=== PATIENT | female | born 1935 | race Asian ===

== ENCOUNTER 2019-05-01 17:20 | Emergency (ER) | payer OTHER, SELFPAY ==
[2019-05-01 17:46] VITALS: BP 165/86; PULSE 90; RESP 13; TEMP 36.6; O2SAT 98
--- NOTE | 2019-05-01 18:30 | ED.SKABFB ---
HPI - Skin/Abscess/Foreign Bdy General Chief complaint: Skin/Abscess/Foreign Body Stated complaint: something wrong with her left calf Time Seen by Provider: 05/01/19 18:14 Source: patient Mode of arrival: ambulatory Limitations: no limitations History of Present Illness HPI narrative: 83-year-old female here for evaluation of a rash in discoloration to the back of her left leg. She is here with her family states that it has been there for the past month. There has been no specific trauma. Stated that the area did start off as little blisters and is now become much larger. They came in this evening because there is now a 2nd area that appears very much like the 1st area closer to her knee. No fevers. She has been placing Vicks vapor rub over the area because of the itching. Not on blood thinners. Review of Systems Constitutional Denies fever(s) and Denies headache(s) ENT Ears, Nose, Mouth, and Throat: Denies vertigo and Denies headache(s) Cardiovascular Denies chest pain and Denies dyspnea Respiratory Denies dyspnea Gastrointestinal Gastrointestinal: Denies abdominal pain Musculoskeletal Denies myalgias and Denies arthralgias Integumentary/Breasts Reports pruritus, Reports lesions, Reports rash, Denies skin pain and Reports sores Neurologic Denies vertigo and Denies headache(s) Hematologic/Lymphatic Denies easy bleeding and Denies easy bruising [facility] Medical History Hypothyroid (Acute) Social History lives independently: Yes Social History lives independently: Yes Exam Initial Vital Signs Initial Vital Signs: Vital Signs Temperature 97.8 F 05/01/19 17:46 Pulse Rate 90 05/01/19 17:46 Respiratory Rate 13 05/01/19 17:46 Blood Pressure 165/86 H 05/01/19 17:46 Pulse Oximetry 98 05/01/19 17:46 Const General: cooperative, comfortable, well developed, well groomed and No acute distress Orientation: alert, awake and oriented x3 HENMT Head: normal to inspection and normocephalic Resp Effort & Inspection: normal respiratory effort Cardio Rate: regular rate Pulses: dorsalis pedis present on the left Skin Other: Patient had 8 cm area of discoloration to the lateral aspect of the left lower extremity. Does have some very small surrounding vesicles. There is no drainage. Has another smaller area proximal to this. Nonblanching. Neuro General: alert, awake and oriented x3 Course Vital Signs - 8 hr 05/01/19 17:46 Temperature 97.8 F Pulse Rate 90 Respiratory Rate 13 Blood Pressure 165/86 H Pulse Oximetry 98 MDM - Skin/Abscess/Foreign Bdy MDM Narrative Medical decision making narrative: Patient is afebrile. The rash is not consistent with [place] Garrick's or TEN or erythema multiform. Also not consistent with [place] spotted fever or Lyme disease. Not consistent with zoster. I do not feel that antibiotics were indicated. We did discuss stopping the Vicks vapor rub because this may be making the skin more irritated. We did discuss the use of a topical [id number] steroid for right now. We did discuss the return precautions regard to potential infection. She was very concerned that it may be the medications she was on however I do not feel like that is likely now. Informed her that she may need to see dermatology. She expressed understanding and agreement with plan. Discharge Plan Departure Patient Disposition: Home Clinical Impression: Rash Discharge Date/Time: 05/01/19 18:44 Interventions: ED Discharge Assessment Last Done: 05/01/19 18:43 Instructions: DI for Rash Activity Restrictions/Additional Instructions: Continue all of your medications as directed. I would recommend only butting a baby lotion over the area. Recommend that you stop the Vics rub. You can use a topical steroid cream 2 times a day for the next 3-5 days like we discussed. You may need to see a Entry Level Manufacturing Engineer if things do not get better. If the steroid cream makes things worse stop using it and call your primary care provider. Return to the ER for any new or worsening symptoms.
== END 2019-05-01 18:44 | disposition home or self-care (01) ==
PROVIDERS: Emergency Provider Emergency Medicine
DX: R21 Rash and other nonspecific skin eruption (principal)
CPT/HCPCS: 99282

== ENCOUNTER 2021-01-06 10:37 | Emergency (ER) | payer MEDICARE, SELFPAY ==
[2021-01-06] VITALS (7 sets, daily range): BP systolic 156–184; BP diastolic 85–95; PULSE 81–96; RESP 15–20; TEMP 36.3; O2SAT 97–100; BMI 19.5
--- NOTE | 2021-01-06 11:05 | ED.SYNCOPE ---
HPI - Syncope General Chief Complaint: Syncope Stated Complaint: diabetic and passed out and hit her head Time Seen by Provider: 01/06/21 10:59 Source: patient Mode of arrival: Ambulatory Limitations: no limitations History of Present Illness HPI narrative: Patient is a 85-year-old female with history of diabetes presenting after a syncopal episode. Daughter states that she was washing dishes when she suddenly passed out. Patient states that she was dizzy and lowered herself to the floor and then lay down the daughter disputes this. There was a brief loss of consciousness. She is not on any antiplatelet or anticoagulation medication. She has no chest pain shortness of breath numbness tingling or weakness. It sounds as though her PCP is in [place]. She denies dizziness now as well. No other symptoms. EMS was called. They apparently evaluated her checked sugar put her in a C-collar and she came POV to the emergency department. Apparently patient has been out of her medication for a number of days and possibly weeks. MD complaint: collapsed Related Data Home Medications Medication Instructions Recorded Confirmed amlodipine 5 mg PO DAILY 01/06/21 01/06/21 atorvastatin 10 mg PO DAILY 01/06/21 01/06/21 cholecalciferol (vitamin D3) 25 mcg PO DAILY 01/06/21 01/06/21 [Vitamin D3] glipizide 15 mg PO BID 01/06/21 01/06/21 levothyroxine 88 mcg PO DAILY 01/06/21 01/06/21 losartan 25 mg PO DAILY 01/06/21 01/06/21 sertraline 50 mg PO DAILY 01/06/21 01/06/21 Previous Rx's Medication Instructions Recorded amlodipine 5 mg PO DAILY #30 tab 01/06/21 atorvastatin 10 mg PO DAILY #30 tab 01/06/21 glipizide 15 mg PO BID #90 tab 01/06/21 levothyroxine 88 mcg PO DAILY #30 cap 01/06/21 losartan 25 mg PO DAILY #30 tab 01/06/21 sertraline 50 mg PO DAILY #30 tab 01/06/21 Allergies Allergy/AdvReac Type Severity Reaction Status Date / Time No Known Drug Allergies Allergy Verified 01/06/21 10:49 Review of Systems Review of Systems ROS Unobtainable: All systems reviewed & are unremarkable except as noted in HPI and below Constitutional Constitutional: Denies chills, Denies fever(s), Denies lethargy and Denies weakness Eyes Eyes: Denies change in vision, Denies eye discharge, Denies irritation and Denies loss of vision ENT Ears, Nose, Mouth, and Throat: Reports dizziness Cardiovascular Cardiovascular: Denies chest pain, Reports syncope, Denies irregular heart rhythm, Denies lightheadedness, Denies palpitations, Denies dyspnea, Denies dyspnea on exertion and Denies orthopnea Respiratory Respiratory: Denies cough, Denies dyspnea, Denies dyspnea on exertion and Denies wheezing Gastrointestinal Gastrointestinal: Denies abdominal pain, Denies change in bowel habits, Denies diarrhea, Denies nausea and Denies vomiting Musculoskeletal Musculoskeletal: Denies back pain and Denies myalgias Integumentary/Breasts Skin/Breast: Denies pruritus, Denies erythema, Denies rash and Denies wounds Neurologic Neurologic: Reports dizziness, Reports syncope, Denies loss of vision and Denies weakness Endocrine Endocrine: Denies palpitations Allergic/Immunologic Allergic/Immunologic: Denies wheezing Patient History Medical History (Updated 01/06/21 @ 13:14 by Any Steiner DO) Hypothyroid Social History lives independently: Yes Smoking Status: Unknown if ever smoked Smoking Status: Unknown if ever smoked alcohol intake frequency: holidays/special occasions only Substance Use Type: does not use Exam Initial Vital Signs Initial Vital Signs: Vital Signs Temperature 97.3 F L 01/06/21 10:41 Pulse Rate 96 H 01/06/21 10:41 Respiratory Rate 15 01/06/21 10:41 Blood Pressure 184/95 H 01/06/21 10:41 Pulse Oximetry 97 01/06/21 10:41 GENERAL: Alert 85-year-old female and in no acute distress. HEENT: Head atraumatic,EOMI, pupils reactive, face symmetric, moist mucous membranes NECK: C-collar in place no vertebral tenderness or step-off CARDIOVASCULAR: Regular rate and rhythm without murmurs, rubs or gallops. RESPIRATORY: Breath sounds equal bilaterally, no wheezes rales or rhonchi. ABDOMEN: Soft, nontender. Normoactive bowel sounds all 4 quadrants. No guarding or rebound. EXTREMITIES: Normal range of motion, no clubbing or edema. Neurovascularly intact NEUROLOGICAL: Alert and oriented x2.Normal gait and speech. Cranial nerves II through XII grossly intact. Good [id number], good [id number], strength equal bilaterally, no dysarthria or aphasia, sensation in tact to soft touch bilaterally, no visual changes, no facial droop SKIN: Warm, dry, no laceration, no petechiae, no rashes or lesions. Scores NIH Stroke Scale Level of Conciousness: Alert, keenly responsive Ask month/age: Answers one question correctly, intubated follow commands Open/close eyes, close hand: Performs both tasks correctly Best gaze horizontal: Normal Visual lin: No visual loss Facial palsy: Normal symetrical movement Left arm drift: No drift for full 10 sec Right arm drift: No drift for full 10 sec Left leg drift: No drift for full 5 sec Right leg drift: No drift for full 5 sec Limb ataxia: Absent Sensory on face/arms/legs: Normal, no sensory loss Best language: No aphasia, normal Dysarthria: Normal Extinction or inattention: No abnormality Total NIH Stroke scale score: 1 Course Orders Ordered: ED Orders 01/06/21 11:06 CT cervical spine wo con Stat CT head/brain wo con Stat XR chest 1V Stat 01/06/21 11:30 Urine Microscopic Stat 01/06/21 11:40 Complete Blood Count AUTO DIFF Stat Comprehensive Metabolic Panel Stat Troponin & CK Cardiac Panel Stat Discontinued Medications Sodium Chloride (Normal Saline 0.9%) 1,000 mls @ 150 mls/hr IV CONT SHERMAN Last Infusion: 01/06/21 13:29 Dose: 0 mls/hr Documented by: Admin: 01/06/21 11:54 Dose: 150 mls/hr Documented by: TEAGAN Vital Signs Vital signs: Vital Signs - 8 hr 01/06/21 10:41 01/06/21 11:41 01/06/21 11:53 Temperature 97.3 F L Pulse Rate 96 H 94 H 94 H Respiratory Rate 15 17 17 Blood Pressure 184/95 H 158/90 H Pulse Oximetry 97 100 100 01/06/21 12:00 01/06/21 12:27 01/06/21 12:30 Temperature Pulse Rate 93 H 95 H 90 Respiratory Rate 19 20 20 Blood Pressure 156/85 H 163/94 H 178/95 H Pulse Oximetry 100 100 100 01/06/21 13:00 Temperature Pulse Rate 81 Respiratory Rate Blood Pressure 179/85 H Pulse Oximetry 99 MDM - Syncope Lab Data Attestation: I reviewed the patient's lab results. Result diagrams: 01/06/21 11:40 01/06/21 11:40 Labs: Lab Results 01/06/21 01/06/21 01/06/21 Range/Units 11:30 11:40 11:40 WBC 12.2 H (4.5-11.0) X10^3/uL RBC 4.89 (4.0-5.2) X10^6/uL Hgb 15.4 (12.0-16.0) g/dL Hct 46.6 H (36-46) % MCV 95.2 (80-100) fL MCH 31.4 (26-34) PG MCHC 33.0 (30-36) % RDW 13.2 (11.6-14.8) % Plt Count 298 (150-400) X10^3/uL Neut % (Auto) 85.0 H (50-75) % Lymph % (Auto) 9.6 L (25-40) % [place] % (Auto) 4.7 (3-14) % Eos % (Auto) 0.3 L (2-4) % Baso % (Auto) 0.4 (0-2) % Neut # (Auto) 20582 H (2926-7029) /uL Lymph # (Auto) 1200 (3066-7378) /uL [place] # (Auto) 600 (0-900) /uL Eos # (Auto) 0 (0-450) /uL Baso # (Auto) 100 (0-100) /uL Sodium 134 L (137-145) mmol/L Potassium 4.4 (3.4-5.1) mmol/L Chloride 96 L (98-107) mmol/L Carbon Dioxide 28 (22-32) mmol/L BUN 27 H (7-17) mg/dL Creatinine 0.92 (0.52-1.04) mg/dL Estimated GFR 58.0 L (>60) mL/min BUN/Creatinine Ratio 29.3 H (6-22) Glucose 523 H* (80-110) mg/dL Calcium 9.9 (8.4-10.2) mg/dL Total Bilirubin 0.6 (0.2-1.3) mg/dL AST 24 (14-36) IU/L ALT 17 (<35) IU/L Alkaline Phosphatase 113 (38-126) U/L Total Creatine Kinase 31 (30-135) U/L CK-MB (CK-2) TNP CK-MB (CK-2) Rel Index TNP Troponin I < 0.012 (0.01-0.034) ng/mL Total Protein 8.2 (6.3-8.2) g/dL Albumin 4.4 (3.5-5.0) g/dL Globulin 3.8 (1.7-4.1) g/dL Albumin/Globulin Ratio 1.2 (1.0-2.8) Urine RBC 0-1/hpf (0-5/HPF) Urine WBC None seen (0-5/HPF) Urine Bacteria None seen (None) Ur Culture Indicated? Cult not indicated Point of Care Testing Glucose POC 370 Urine Dip Bedside Urine Glucose 2000+ mg/dl Bedside Urine Bilirubin - Negative Bedside Urine Ketone +/- 5 Urine Specific [place] 1.015 Bedside Urine Occult Blood - Negative Bedside Urine pH 6 Bedside Urine Protein +/- 15 Bedside Urine Urobilinogen +/- 1mg Bedside Urine Nitrite - Negative Bedside Urine Leukocytes - Negative Esterase Imaging Data CT scan - head: Radiologist's Impression: PROCEDURE: CT HEAD/BRAIN WO CON INDICATIONS: syncope TECHNIQUE: Noncontrast 4.5 mm thick angled axial sections acquired from the foramen magnum to the vertex, with coronal and sagittal reformats. For radiation dose reduction, the following was used: automated exposure control, adjustment of mA and/or kV according to patient size. COMPARISON: None. FINDINGS: Image quality: Excellent. CSF spaces: Basal cisterns are patent. No extra-axial fluid collections. The ventricles are symmetric in size and shape. Brain: No intracranial bleeds or masses. There is cerebral volume loss for age, with resultant ventricular and sulcal prominence. Incidental cavum septum pellucidum et vergae. There are periventricular and deep white matter chronic small vessel ischemic changes. There is intracranial internal carotid artery atherosclerosis. Skull and face: Calvarium and visualized facial bones appear intact, without suspicious lesions. Sinuses: Visualized sinuses and mastoids are clear. IMPRESSION: No acute intracranial abnormality. Dictated by: Collins Snell M.D. on 01/06/2021 at 10:41 CT - cervical spine: Radiologist's Impression: PROCEDURE: CT CERVICAL SPINE WO CON INDICATIONS: syncope TECHNIQUE: Noncontrast 3 mm thick sections acquired from the skull base to the T4 level. Sagittal and coronal reformats were then constructed. For radiation dose reduction, the following was used: automated exposure control, adjustment of mA and/or kV according to patient size. COMPARISON: None. FINDINGS: Image quality: Excellent. Bones: No fractures or dislocations. Visualized superior ribs are intact. There is multilevel intervertebral disc height loss with a disc osteophyte complex formation at C4-5 and C5-6. Partially visualized right maxillary periodontal disease. Soft tissues: Prevertebral soft tissues are normal in thickness. No paravertebral hematomas. No apical pneumothoraces. 5 mm region of nodular scarring in the right upper lung. IMPRESSION: No acute cervical spine fracture. Multilevel cervical spondylosis, most apparent at C5-6 and C6-7. 5 millimeter region of nodular scarring in the right lung apex. Per 2017 Fleischner Society guidelines for incidental pulmonary nodule management, if the patient is considered of high risk for pulmonary malignancy, a optional CT could be performed in 12 months to assess for stability. Dictated by: Collins Snell M.D. on 01/06/2021 at 10:43 Chest x-ray: Radiologist's Impression: PROCEDURE: XR CHEST 1V INDICATIONS: syncope TECHNIQUE: One view of the chest was acquired. COMPARISON: None. FINDINGS: Surgical changes and devices: None. Lungs and pleura: Lungs are clear. No pleural effusions or pneumothorax. Mediastinum: Mediastinal contours appear normal. Heart size is normal. Bones and chest wall: There is a fracture of the mid distal left clavicle poor definition along the fracture planes suggestive of bony remodeling. Overlying soft tissues appear unremarkable. IMPRESSION: 1. No acute cardiopulmonary abnormality. 2. Mid distal left clavicular fracture, favored to be subacute in origin by its radiographic appearance. Dictated by: Collins Snell M.D. on 01/06/2021 at 10:50 ECG Data Attestation: I personally reviewed and interpreted this ECG as follows: Prior ECG tracings: not available for review Interpretation: Sinus rhythm with PVCs rate 95 p.r. interval 174 QRS [address] changes no priors to compare MDM Narrative Medical decision making narrative: Patient is quite hyperglycemic she apparently has been out of her medications for a while. Glucose of over 500. No signs of DKA, no anion gap she. She currently denies any symptoms in is most concerned about getting her thyroid medication refilled. Discharge Plan Departure Patient Disposition: Home Clinical Impression: Hyperglycemia due to diabetes mellitus, Near syncope Instructions: Fainting, DI for Diabetes Type 2 Activity Restrictions/Additional Instructions: *You have been diagnosed with a fainting and hyperglycemia *What to do: He likely fainted secondary to high blood sugar. Please take your medications as directed. You have received about 1 month worth of medications please see a primary care provider for any further refills. *Continue to take medications as directed *Follow up with your primary care provider in 2-3 days *Return to ER if you should have increasing dizziness, weakness, numbness, tingling, confusion or any new, worsening or concerning symptoms Prescriptions: New amlodipine 5 mg tablet 5 mg PO DAILY Qty: 30 RF: 0 atorvastatin 10 mg tablet 10 mg PO DAILY Qty: 30 RF: 0 glipizide 10 mg tablet 15 mg PO BID Qty: 90 RF: 0 levothyroxine 88 mcg capsule 88 mcg PO DAILY Qty: 30 RF: 0 losartan 25 mg tablet 25 mg PO DAILY Qty: 30 RF: 0 sertraline 50 mg tablet 50 mg PO DAILY Qty: 30 RF: 0 No Action levothyroxine 88 mcg Tablet 88 mcg PO DAILY RF: 0 glipizide 10 mg Tablet 15 mg PO BID RF: 0 losartan 25 mg Tablet 25 mg PO DAILY RF: 0 amlodipine 5 mg Tablet 5 mg PO DAILY RF: 0 cholecalciferol (vitamin D3) [Vitamin D3] 25 mcg (1,000 unit) Tablet 25 mcg PO DAILY RF: 0 atorvastatin 10 mg Tablet 10 mg PO DAILY RF: 0 sertraline 50 mg Tablet 50 mg PO DAILY RF: 0
[2021-01-06 11:54] LABS: Add Manual Diff / Slide Review NO; Basophils Absolute Auto 100 /uL (0-100); Basophils Percent Auto 0.4 % (0-2); Eosinophils Absolute Auto 0 /uL (0-450); Eosinophils Percent Auto 0.3 % (2-4); Hematocrit 46.6 % (36-46); Hemoglobin 15.4 g/dL (12.0-16.0); Lymphocytes Absolute Auto 1200 /uL (1100-4500); Lymphocytes Percent Auto 9.6 % (25-40); Mean Corpuscular Hemoglobin 31.4 PG (26-34); Mean Corpuscular Volume 95.2 fL (80-100); Monocytes Absolute Auto 600 /uL (0-900); Monocytes Percent Auto 4.7 % (3-14); Neutrophils Absolute Auto 10300 /uL (1500-7000); Platelet Count 298 X10^3/uL (150-400); Red Blood Cell Count 4.89 X10^6/uL (4.0-5.2); Red Cell Distribution Width 13.2 % (11.6-14.8); White Blood Cell Count 12.2 X10^3/uL (4.5-11.0)
[2021-01-06] MEDS: SODIUM CHLORIDE 0.9% 1,000 ML 150 ML IV (11:54)
[2021-01-06 12:09] LABS: Alanine Aminotransferase 17 IU/L (<35); Albumin 4.4 g/dL (3.5-5.0); Albumin Globulin Ratio 1.2 (1.0-2.8); Alkaline Phosphatase 113 U/L (38-126); Aspartate Aminotransferase 24 IU/L (14-36); BUN Creatinine Ratio 29.3 (6-22); Bilirubin Total 0.6 mg/dL (0.2-1.3); Blood Urea Nitrogen 27 mg/dL (7-17); Calcium 9.9 mg/dL (8.4-10.2); Carbon Dioxide 28 mmol/L (22-32); Chloride 96 mmol/L (98-107); Creatine Kinase 31 U/L (30-135); Globulin 3.8 g/dL (1.7-4.1); HEMOLYSIS < 15 (0-50); Potassium 4.4 mmol/L (3.4-5.1); Sodium 134 mmol/L (137-145); Total Protein 8.2 g/dL (6.3-8.2)
[2021-01-06 12:17] LABS: Bacteria Urine None Seen; WBC Urine None Seen (0-5/HPF)
[2021-01-06 12:20] LABS: Troponin I < 0.012 ng/mL (0.01-0.034)
--- NOTE | 2021-01-06 12:27 | PC.NURSE ---
C-spine cleared by . C-collar removed.
[2021-01-06 12:28] LABS: Culture Indicated Urine Cult Not Indicated; RBC Urine 0-1/HPF (0-5/HPF)
[2021-01-06 12:32] LABS: Glucose 523 mg/dL (80-110)
== END 2021-01-06 13:22 | disposition home or self-care (01) ==
PROVIDERS: Emergency Provider Emergency Medicine
DX: E11.65 Type 2 diabetes mellitus with hyperglycemia (principal); R55 Syncope and collapse; W18.30XA Fall on same level, unspecified, initial encounter; Y92.000 Kitchen of unspecified non-institutional (private) residence as the place of occurrence of the external cause
CPT/HCPCS: 36415; 70450; 71045; 72125; 80053; 81003; 81015; 82550; 82962; 84484; 85025; 93005; 96360; 96361; 99284